=== PATIENT | male | born 1955 | race Caucasian/White ===

== ENCOUNTER → 2022-04-13 | Day surgery (SDC) | payer OTHER ==
[~2022-04-13] VITALS: Ht 182.9 cm; Wt 72.6 kg
[~2022-04-13] MED LIST: NORCO 5-325 TA1 EACH PO
[2022-04-13 12:07] LABS: HCT 34.9 % (42.0-52.0); HGB 10.8 g/dl (13.2-18.0); MCH 23.6 pg (25.0-31.0); MCHC 30.9 g/dL (32.0-36.0); MCV 76.2 fL (78.0-100.0); MPV 9.5 fL (6.0-9.5); RBC 4.58 M/uL (4.70-6.00); RDW 14.6 % (11.5-14.0); WBC 8.4 K/uL (4.0-10.5)
[2022-04-13 12:26] LABS: ALBUMIN 3.4 g/dL (3.4-5.0); BILIRUBIN - TOTAL 0.3 mg/dL (0.2-1.0); BUN/CREAT RATIO (CALC) 12.2 RATIO; CREATININE 0.82 mg/dL (0.67-1.17); GLOBULIN (CALCULATION) 3.9 g/dL; POTASSIUM 3.9 mmol/L (3.5-5.1); TOTAL PROTEIN 7.3 g/dL (6.4-8.2)
== END | disposition home or self-care (01) ==
LOC: FAS 11:21
PROVIDERS: Surgery
DX: C21.8 Malignant neoplasm of overlapping sites of rectum, anus and anal canal (principal)
CPT/HCPCS: 36415; 71045; 80053; 82378; 93005; J1100; J1170; J1885; J2250; J2405; J2704; J3010; J7120

== ENCOUNTER → 2022-05-26 | Day surgery (SDC) | payer OTHER ==
[~2022-05-26] VITALS: Ht 182.9 cm; Wt 67.1 kg
[2022-05-26 09:28] LABS: HCT 30.5 % (42.0-52.0); MCH 21.2 pg (25.0-31.0); MCHC 29.5 g/dL (32.0-36.0); MCV 71.8 fL (78.0-100.0); MPV 9.6 fL (6.0-9.5); RBC 4.25 M/uL (4.70-6.00); RDW 14.8 % (11.5-14.0); WBC 6.4 K/uL (4.0-10.5)
[2022-05-26 09:49] LABS: ALBUMIN 3.1 g/dL (3.4-5.0); BILIRUBIN - TOTAL 0.2 mg/dL (0.2-1.0); BUN/CREAT RATIO (CALC) 12.3 RATIO; CREATININE 0.73 mg/dL (0.67-1.17); GLOBULIN (CALCULATION) 4.1 g/dL; POTASSIUM 4.2 mmol/L (3.5-5.1); TOTAL PROTEIN 7.2 g/dL (6.4-8.2)
== END | disposition home or self-care (01) ==
LOC: FAS 08:00
PROVIDERS: Surgery
DX: I87.2 Venous insufficiency (chronic) (peripheral) (principal); K62.5 Hemorrhage of anus and rectum; C20 Malignant neoplasm of rectum; D53.9 Nutritional anemia, unspecified; D50.0 Iron deficiency anemia secondary to blood loss (chronic)
CPT/HCPCS: 36415; 71045; 76000; 80053; C1788; J0690; J1100; J1644; J2250; J2405; J2704; J3010; J7120